=== PATIENT | female | born 1930 | race Caucasian/White ===

== ENCOUNTER → 2016-12-15 | Outpatient (CLI) | payer MEDICARE ==
[~2016-12-15] MED LIST: AIRBORNE TABLE1 EACH PO; ASPIRIN EC81 MG PO; BENADRYL-DPS25 MG PO; CALCIUM CARBON400 MG PO; CARDIZEM CD180 MG PO; DAILY MULTIPLE1 EAC1 PO; ECHINACEA80 MG PO; GINGER500 MG PO; HERBAL LAX PO; IPRATROPIUM BRO15 ML NS; MELATONIN3 MG PO; METAMUCIL660 GM PO; MOTRIN-DPS400 MG PO; OMEGA-3 DPS1000 MG PO; PERCOCET 5 DPS1 TAB PO; SENOKOT DPS8.6 MG PO; SENOKOT S1 TAB PO; SUPER B COMPLE150 MG PO; TENORMIN DPS50 MG PO; ULTRAM DPS50 MG PO; XALATAN2.5 ML OU; XARELTO15 MG PO
--- NOTE | ~2016-12-15 | ECH ---
Transthoracic Echocardiography Report (TTE) Demographics Patient Name BROOKE WELLER Date of Study 12/15/2016 Patient Number [id number] Visit Number [id number] Date of 1930 Room Number Accession Number [id number] Gender Female Age 86 year(s) Referring Julieta Lewis Staffing Account Manager Miri Wiseman [facility] Physician Physician Interpreting Snehal Trevizo Wire Repairer Physician MD Supervising Ordering Physician Julieta Lewis MD, MD/[facility] Nurse Vance Nix Stress Planimeter Operator Conclusions Summary Technically adequate exam. The estimated left ventricular ejection fraction is 60-65%. Mild left ventricular hypertrophy. The left atrium is mildly dilated by LA volume index measurement. Bubble study was done, there is no evidence for a PFO or ASD. Mild mitral annular calcification. Mild-moderate mitral regurgitation by color Doppler. Mild tricuspid regurgitation by color Doppler. There is mild pulmonary hypertension. The pulmonary pressure (RVSP) is 40 mmHg. Procedure Type of Study TTE procedure:Echo Complete SF. Procedure Date Date: 12/15/2016 Start: 01:04 PM Technical Quality: Adequate visualization Indications:TIA. Additional Indications:irregular heart beat, visual disturbances Appropriate Use Criteria: 9 Contrast Medium: Bubble Study. Height: 61 inches Weight: 142 pounds BSA: 1.63 m Rhythm: Within normal limits HR: 56 bpm BP: 125/56 mmHg M-Mode/2D Measurements LV Diastolic Dimension: 3.72 cm LV Systolic Dimension: 2.61 cm LV Septum Diastolic: 1.1 cm LV PW Diastolic: 1.01 cm AO Root Dimension: 2.34 cm Cardiac Output: 1.94 l/min LA Dimension: 3.43 cm Cardiac Index: 1.19 l/min*m RV Diastolic Dimension: 3.15 cm LA volume index: 37 ml/m LVOT: 1.64 cm LVOT VTI: 16.45 cm RV Base: 2.9 cm LV Stroke volume: 34.73 ml RV Mid: 2.5 cm LV Stroke volume index: 21.31 ml/m RV Length: 4.8 cm TAPSE: 2.2 cm Doppler Measurements AV Peak Velocity: 0.97 m/s MV Peak E-Wave: 1.06 m/s AV Peak Gradient: 3.76 mmHg MV Peak A-Wave: 0.51 m/s AV Mean Gradient: 1.79 mmHg MV E/A Ratio: 2.09 LVOT Peak Velocity: 0.73 m/s MV P1/2t: 56.9 msec AV Area (Continuity):1.78 cm TR Velocity:2.95 m/s MV Deceleration Time: 162.7 msec TR Gradient:34.81 mmHg MV Area (PHT): 3.87 cm Estimated RAP:5 mmHg PV Peak Velocity: 0.87 m/s Estimated RVSP: 40 mmHg PV Peak Gradient: 3.01 mmHg Estimated PASP: 39.81 mmHg RA Area: 11.98 cm Findings Left Ventricle The left ventricle is normal in size . Mild left ventricular hypertrophy. Diastolic assessment reveals normal relaxation. Right Ventricle Normal right ventricle structure and function. Left Atrium The left atrium is mildly dilated by LA volume index measurement. Bubble study was done, there is no evidence for a PFO or ASD. Right Atrium Normal right atrial size. Mitral Valve Mild thickening of the mitral valve leaflets. Mild-moderate mitral regurgitation by color Doppler. Aortic Valve Normal aortic valve structure and function. Tricuspid Valve Normal tricuspid valve structure and function. Mild tricuspid regurgitation by color Doppler. There is mild pulmonary hypertension. The pulmonary pressure (RVSP) is 40 mmHg. Pulmonic Valve Normal pulmonic valve structure and function. Mild-moderate pulmonic valve regurgitation by color Doppler. Pericardial Effusion No evidence of pericardial effusion. Miscellaneous Visualized portions of the aortic root and ascending aorta appear normal in size. Pleural Effusion No evidence of pleural effusion. Contractility Score LV regional wall motion:(0-Non visualized 1-Normal 2-Hypokinesis 3-Akinesis 4-Dyskinesis 5-Aneurysm) Signature
== END | disposition home or self-care (01) ==
LOC: CARD 12:51
DX: I49.9 Cardiac arrhythmia, unspecified (principal); I63.9 Cerebral infarction, unspecified; H53.9 Unspecified visual disturbance; I08.1 Rheumatic disorders of both mitral and tricuspid valves; I51.7 Cardiomegaly; I27.0 Primary pulmonary hypertension